=== PATIENT | male | born 1955 | race Caucasian/White ===

== ENCOUNTER 2024-03-17 02:40 | Inpatient (IN) | payer MEDICARE ==
[~2024-03-17] VITALS: Ht 190.5 cm; Wt 106.8 kg
[2024-03-17] VITALS (15 sets, daily range): BP systolic 121–178; BP diastolic 63–92; PULSE 45–77; RESP 14–18; TEMP 97.3–98.1; O2SAT 95–99
[2024-03-17] MEDS: heparin 10,000 units/1 ML INJ IV PRN (02:48)
[2024-03-17 03:08] LABS: BASOPHILS % (AUTO) 0.5 % (0-1); EOSINOPHILS # (AUTO) 0.1 X10'3 (0-0.9); EOSINOPHILS % (AUTO) 1.5 % (0-6); HEMATOCRIT 43.9 % (42.0-52.0); HEMOGLOBIN 15.1 g/dl (14.0-17.9); LYMPHOCYTES # (AUTO) 1.7 X10'3 (1.1-4.8); LYMPHOCYTES % (AUTO) 26.3 % (21-51); MEAN CORPUSCULAR HEMOGLOBIN 30.3 PG (27.0-31.0); MEAN CORPUSCULAR HGB CONC 34.4 g/dL (33.0-36.5); MEAN PLATELET VOLUME 7.2 FL (7.4-10.4); MONOCYTES # (AUTO) 0.4 X10'3 (0-0.9); MONOCYTES % (AUTO) 5.5 % (2-12); NEUTROPHILS # (AUTO) 4.4 X10'3 (1.8-7.7); NEUTROPHILS % (AUTO) 66.2 % (42-75); PLATELET COUNT 148 X10'3 (140-440); RED BLOOD COUNT 4.99 X10'6 (4.70-6.10); RED CELL DISTRIBUTION WIDTH 14.5 % (11.5-14.5); WHITE BLOOD COUNT 6.6 X10'3 (4.5-11.0)
[2024-03-17 03:20] LABS: APTT 40 SECONDS (22-32); INR 1.1 INR; PROTHROMBIN TIME 11.9 SECONDS (9.0-12.0)
[2024-03-17] MEDS: heparin 25,000 UNIT/250ml bag 250 ML IV PRN (03:28)
[2024-03-17] MEDS: HEPARIN DRIP-CARDIAC**PHARMACIST-TO-DOSE IV NR (03:30)
[2024-03-17] MEDS: HEPARIN DRIP INITAL BOLUS --- DO NOT GIVE/ORDER MC ONE (03:30)
[2024-03-17 03:31] LABS: ALBUMIN 3.4 G/DL (3.4-5.0); ANION GAP 4 (8-16); BLOOD UREA NITROGEN 21 MG/DL (7-18); BUN/CREATININE RATIO 23.3 (10.0-20.0); CALCIUM 8.3 MG/DL (8.5-10.1); CHLORIDE 105 MMOL/L (99-107); GLUCOSE 93 MG/DL (70-104); POTASSIUM 3.5 MMOL/L (3.5-5.1); PRO BRAIN NATRIURETIC PEPTIDE 134 PG/ML (0-125); SODIUM 141 MMOL/L (135-145); TOTAL CARBON DIOXIDE 31.9 MMOL/L (24-32); eCRCL 97 ML/MIN; eGFR 84 ML/MIN
[2024-03-17] MEDS: COMMUNICATION ORDER 1 EA MISC MC ONE (03:40)
[2024-03-17] MEDS ORDERED: ALLO300T8 PO (03:59)
[2024-03-17] MEDS ORDERED: CALC250T2 PO (03:59)
[2024-03-17] MEDS ORDERED: LOSA-415 PO (03:59)
[2024-03-17] MEDS: acetaminophen 325mg tablet PO ONE (04:29)
[2024-03-17] MEDS ORDERED: magnesium sulf-water 4G/100mL 100 ML IV PRN (04:35)
[2024-03-17] MEDS ORDERED: acetaminophen 325mg tablet PO PRN (04:35)
[2024-03-17] MEDS ORDERED: mag hydrox/Alum hydrox/simeth 30ml oral suspension PO PRN (04:35)
[2024-03-17] MEDS ORDERED: potassium Cl 40MEQ/1/2NS 520ml 520 ML IV PRN (04:35)
[2024-03-17] MEDS ORDERED: potassium Cl 20 mEq SR tablet PO PRN (04:35)
[2024-03-17] MEDS ORDERED: magnesium Cl slow-release 64mg tablet PO PRN (04:35)
[2024-03-17] MEDS ORDERED: HYDROcodone/acetaminophen 10/325mg tab PO PRN (04:35)
[2024-03-17] MEDS ORDERED: magnesium sulf-water 2g/50mL 50 ML IV PRN (04:35)
[2024-03-17] MEDS ORDERED: PERFLUTREN PROTEIN-A MICROSPHR (Optison) 0.22 MG/ML 3ML VIAL IV ONE (04:40)
[2024-03-17 04:57] LABS: HEMOGLOBIN A1C 5.3 % (4.5-6.2)
[2024-03-17 06:12] LABS: POTASSIUM 3.7 MMOL/L (3.5-5.1)
[2024-03-17] MEDS: atorvastatin 20mg tablet PO SCH (07:56)
[2024-03-17] MEDS: docusate sod 100mg capsule PO SCH (07:56)
[2024-03-17] MEDS: K and/or MAG REPLACEMENT MC SCH (07:57)
[2024-03-17] MEDS ORDERED: verapamil 2.5 mg/ml inj IV ONE (08:34)
[2024-03-17] MEDS ORDERED: LIDOcaine 1% (10mg/ml) 2ml vial ONE (08:34)
[2024-03-17] MEDS ORDERED: fentaNYL/PF 50MCG/1 ML 2ML syringe ONE (08:35)
[2024-03-17] MEDS ORDERED: midazolam 1 mg/ML 2ml injection ONE (08:35)
[2024-03-17] MEDS ORDERED: heparin 1,000unit/ml 10ml vial 10 ML ONE ×2 (08:35→10:43)
[2024-03-17] MEDS ORDERED: iohexol 350MG/ML 100ml bottle IV ONE ×3 (08:35→10:10)
[2024-03-17] MEDS ORDERED: iohexol 350 MG/ML 50ML vial IV ONE (08:35)
[2024-03-17] MEDS ORDERED: nitroGLYCERIN 500mcg/5mL D5W 10 ML IV ONE (08:42)
[2024-03-17] MEDS: MESSAGE TO NURSING IV ONE ×2 (09:50→11:37)
[2024-03-17] MEDS ORDERED: heparin 1,000 UNITS/NS 500ml 500 ML ONE (10:10)
[2024-03-17] MEDS ORDERED: ticagrelor 90mg tablet ONE (10:17)
[2024-03-17] MEDS ORDERED: tirofiban 12.5mg in NS 250mL 250 ML IV ONE (10:26)
[2024-03-17] MEDS ORDERED: aspirin 81mg tab.chew ONE (10:42)
[2024-03-17] MEDS: normal saline 1000ml 1,000 ML IV SCH (11:36)
[2024-03-17] MEDS: ticagrelor 90mg tablet PO ONE (11:37)
[2024-03-17 11:55] LABS: BASOPHILS % (AUTO) 0.6 % (0-1); EOSINOPHILS # (AUTO) 0.2 X10'3 (0-0.9); EOSINOPHILS % (AUTO) 2.4 % (0-6); HEMATOCRIT 43.2 % (42.0-52.0); HEMOGLOBIN 14.7 g/dl (14.0-17.9); LYMPHOCYTES # (AUTO) 1.6 X10'3 (1.1-4.8); LYMPHOCYTES % (AUTO) 24.1 % (21-51); MEAN CORPUSCULAR HEMOGLOBIN 30.3 PG (27.0-31.0); MEAN CORPUSCULAR VOLUME 89.1 FL (78-98); MEAN PLATELET VOLUME 8.1 FL (7.4-10.4); MONOCYTES # (AUTO) 0.5 X10'3 (0-0.9); MONOCYTES % (AUTO) 7.5 % (2-12); NEUTROPHILS # (AUTO) 4.4 X10'3 (1.8-7.7); NEUTROPHILS % (AUTO) 65.4 % (42-75); PLATELET COUNT 219 X10'3 (140-440); RED BLOOD COUNT 4.85 X10'6 (4.70-6.10); RED CELL DISTRIBUTION WIDTH 14.7 % (11.5-14.5); WHITE BLOOD COUNT 6.7 X10'3 (4.5-11.0)
[2024-03-17 12:14] LABS: ALBUMIN 3.1 G/DL (3.4-5.0); ANION GAP 6 (8-16); BLOOD UREA NITROGEN 14 MG/DL (7-18); BUN/CREATININE RATIO 18.7 (10.0-20.0); CHLORIDE 107 MMOL/L (99-107); CHOL/HDL RATIO 3.1 (0.00-4.99); CHOLESTEROL 138 MG/DL (0-200); CREATININE 0.75 MG/DL (0.60-1.10); GLUCOSE 91 MG/DL (70-104); HDL CHOLESTEROL 44 MG/DL (35-60); LDL CHOLESTEROL 89 MG/DL (50-100); POTASSIUM 3.5 MMOL/L (3.5-5.1); SODIUM 143 MMOL/L (135-145); TOTAL CARBON DIOXIDE 29.7 MMOL/L (24-32); TRIGLYCERIDES 30 MG/DL (20-135); eCRCL 116 ML/MIN; eGFR > 90 ML/MIN
[2024-03-17] MEDS: diphenhydrAMINE 25mg capsule PO ONE (12:53)
[2024-03-17] MEDS: isosorbide mononitrate 30mg tab.SR.24H PO SCH (17:15)
[2024-03-17] MEDS: losartan 50mg tablet PO SCH (17:16)
[2024-03-17] MEDS: acetaminophen 325mg tablet PO PRN (20:54)
[2024-03-18 02:00] VITALS: BP 122/54; PULSE 51; RESP 16; TEMP 97.5; O2SAT 97
[2024-03-18 03:22] LABS: BASOPHILS % (AUTO) 0.4 % (0-1); EOSINOPHILS # (AUTO) 0.1 X10'3 (0-0.9); EOSINOPHILS % (AUTO) 1.6 % (0-6); HEMATOCRIT 40.6 % (42.0-52.0); HEMOGLOBIN 14.1 g/dl (14.0-17.9); LYMPHOCYTES # (AUTO) 1.3 X10'3 (1.1-4.8); LYMPHOCYTES % (AUTO) 18.7 % (21-51); MEAN CORPUSCULAR HEMOGLOBIN 30.5 PG (27.0-31.0); MEAN CORPUSCULAR HGB CONC 34.7 g/dL (33.0-36.5); MEAN CORPUSCULAR VOLUME 87.9 FL (78-98); MEAN PLATELET VOLUME 7.3 FL (7.4-10.4); MONOCYTES # (AUTO) 0.6 X10'3 (0-0.9); MONOCYTES % (AUTO) 9.1 % (2-12); NEUTROPHILS # (AUTO) 4.9 X10'3 (1.8-7.7); NEUTROPHILS % (AUTO) 70.2 % (42-75); PLATELET COUNT 146 X10'3 (140-440); RED BLOOD COUNT 4.62 X10'6 (4.70-6.10)
[2024-03-18 03:31] LABS: APTT 26 SECONDS (22-32); INR 1.1 INR; PROTHROMBIN TIME 11.9 SECONDS (9.0-12.0)
[2024-03-18 03:35] LABS: ALANINE AMINOTRANSFERASE 38 U/L (12-78); ALBUMIN 2.9 G/DL (3.4-5.0); ALBUMIN/GLOBULIN RATIO 0.9 (1.1-1.5); ALKALINE PHOSPHATASE 61 IU/L (46-116); ANION GAP 6 (8-16); ASPARTATE AMINO TRANSFERASE 69 U/L (10-37); BILIRUBIN,TOTAL 0.9 MG/DL (0.1-1.0); BLOOD UREA NITROGEN 14 MG/DL (7-18); BUN/CREATININE RATIO 16.5 (10.0-20.0); CALCIUM 8.1 MG/DL (8.5-10.1); CHLORIDE 108 MMOL/L (99-107); CREATININE 0.85 MG/DL (0.60-1.10); GLUCOSE 91 MG/DL (70-104); POTASSIUM 3.4 MMOL/L (3.5-5.1); SODIUM 143 MMOL/L (135-145); TOTAL CARBON DIOXIDE 29.1 MMOL/L (24-32); TOTAL PROTEIN 6.2 G/DL (6.4-8.2); eCRCL 102 ML/MIN; eGFR 90 ML/MIN
[2024-03-18 03:41] LABS: CHOL/HDL RATIO 3.2 (0.00-4.99); CHOLESTEROL 125 MG/DL (0-200); HDL CHOLESTEROL 39 MG/DL (35-60); LDL CHOLESTEROL 80 MG/DL (50-100); MAGNESIUM 1.9 MG/DL (1.5-2.4); PHOSPHORUS 4.2 MG/DL (2.3-4.5); TRIGLYCERIDES 54 MG/DL (20-135)
[2024-03-18] MEDS: potassium Cl 20 mEq SR tablet PO PRN (03:52)
[2024-03-18] MEDS: HYDROcodone/acetaminophen 5mg/325mg tablet PO PRN (03:56)
[2024-03-18 07:00] VITALS: BP 123/51; PULSE 59; RESP 16; TEMP 98.6; O2SAT 96
[2024-03-18] MEDS: aspirin 81mg, enteric-coated 1 TAB TABLET.DR PO SCH (07:46)
[2024-03-18] MEDS: ticagrelor 90mg tablet PO SCH (07:47)
[2024-03-18] MEDS: magnesium hydroxide 30ml (MOM) UD suspension PO PRN (07:47)
[2024-03-18 08:00] VITALS: RESP 16; O2SAT 96
[2024-03-18] MEDS: ondansetron/PF 4mg/2ml inj IV PRN (09:44)
[2024-03-18 11:00] VITALS: BP 128/61; PULSE 61; RESP 17; TEMP 97.8; O2SAT 96
[2024-03-18] MEDS ORDERED: ASPI-1071 PO (12:50)
[2024-03-18] MEDS ORDERED: ATOR20TA66 PO (12:50)
[2024-03-18] MEDS ORDERED: TICA90TA PO (12:50)
[2024-03-18] MEDS ORDERED: ISOS30TA84 PO (12:50)
[2024-03-18] MEDS ORDERED: METO-395 PO (13:43)
== END 2024-03-18 14:50 | disposition home or self-care (01) | DRG 321 ==
LOC: ER 02:41 → ED HOLD 04:38 → PCU 3S 07:38
PROVIDERS: ADMIT Internal Medicine Critical Care Medicine; ATTEND Internal Medicine
PROC: 027034Z Dilation of Coronary Artery, One Artery with Drug-eluting Intraluminal Device, Percutaneous Approach (ICD-10-PCS; principal; 2024-03-17)
PROC: 4A023N7 Measurement of Cardiac Sampling and Pressure, Left Heart, Percutaneous Approach (ICD-10-PCS; 2024-03-17)
PROC: B2111ZZ Fluoroscopy of Multiple Coronary Arteries using Low Osmolar Contrast (ICD-10-PCS; 2024-03-17)
PROC: B2151ZZ Fluoroscopy of Left Heart using Low Osmolar Contrast (ICD-10-PCS; 2024-03-17)
DX: I21.4 Non-ST elevation (NSTEMI) myocardial infarction (principal); I25.42 Coronary artery dissection; I10 Essential (primary) hypertension; M10.9 Gout, unspecified; Z79.899 Other long term (current) drug therapy
CPT/HCPCS: 93306; 93458; 99291; C9600; 36415; 76937; 80048; 80053; 80061; 83036; 83735; 83880; 84100; 84132; 84484; 85025; 85347; 85610; 85730; 87081; 92920; 93005; 99152; 99153; A6209; A6258; A6449; C1725; C1751; C1769; C1874; C1894; G0378; J1644; J2003; J2250; J2405; J3010; J3246; J3490; J7030; Q0163; Q9967